=== PATIENT | female | born 1960 | race Caucasian/White ===

== ENCOUNTER → 2020-09-28 | Day surgery (SDC) | payer OTHER ==
[~2020-09-28] MED LIST: ASPIR-TRIN325 MG PO; ASPIRIN EC81 MG PO; CHLORTHALIDONE25 MG PO; CIPRO500 M1 PO; CRESTOR40 MG PO; FLOMAX 0.4 MG0.4 MG PO; FLOMAX0.4 MG PO; GLYBURIDE 5MG TA5 MG PO; IRON240 MG PO; KLOR-CON M2020 MEQ PO; MACROBID100 MG PO; METFORMIN HCL500 MG PO; NEXIUM40 MG PO; NORCO 5-325 TA1 EACH PO; NORVASC5 MG PO; PHENERGAN25 M1 PO; VITAMIN D325 MC4 PO
[2020-09-28 09:25] LABS: HCT 46.1 % (37.0-47.0); HGB 15.5 g/dl (12.5-16.0); MCH 28.4 pg (25.0-31.0); MCHC 33.6 g/dL (32.0-36.0); MCV 84.4 fL (78.0-100.0); RBC 5.46 M/uL (4.20-5.40); RDW 13.2 % (11.5-14.0); WBC 8.7 K/uL (4.0-10.5)
[2020-09-28 09:41] LABS: ALBUMIN 4.1 g/dL (3.4-5.0); BILIRUBIN - TOTAL 0.8 mg/dL (0.2-1.0); BUN/CREAT RATIO (CALC) 13.8 RATIO; CREATININE 1.09 mg/dL (0.51-0.95); GLOBULIN (CALCULATION) 3.3 g/dL; POTASSIUM 3.3 mmol/L (3.5-5.1); TOTAL PROTEIN 7.4 g/dL (6.4-8.2)
== END | disposition home or self-care (01) ==
LOC: FAS 08:25
PROVIDERS: Surgery
DX: Z12.11 Encounter for screening for malignant neoplasm of colon (principal); K57.30 Diverticulosis of large intestine without perforation or abscess without bleeding; K21.9 Gastro-esophageal reflux disease without esophagitis; J45.909 Unspecified asthma, uncomplicated; I10 Essential (primary) hypertension; E78.00 Pure hypercholesterolemia, unspecified; G47.30 Sleep apnea, unspecified; E11.9 Type 2 diabetes mellitus without complications; Z88.5 Allergy status to narcotic agent; Z88.8 Allergy status to other drugs, medicaments and biological substances; Z79.82 Long term (current) use of aspirin
CPT/HCPCS: 36415; 80053; J2704; J7120